=== PATIENT | male | born 1995 | race Caucasian/White ===

== ENCOUNTER 2016-11-11 20:20 | Emergency (ER) | payer OTHER ==
[2016-11-11 20:24] VITALS: BP 143/89
== END 2016-11-11 20:49 | disposition left against medical advice (07) ==
LOC: ED 20:20
DX: Z53.21 Procedure and treatment not carried out due to patient leaving prior to being seen by health care provider (principal)

== ENCOUNTER 2016-11-11 21:10 | Emergency (ER) | payer OTHER ==
[2016-11-11 22:10] VITALS: BP 143/89
== END 2016-11-11 22:10 | disposition home or self-care (01) ==
LOC: ED 21:10
DX: B34.9 Viral infection, unspecified (principal); R03.0 Elevated blood-pressure reading, without diagnosis of hypertension
CPT/HCPCS: Q0162

== ENCOUNTER 2016-11-12 15:36 | Inpatient (IN) | payer OTHER ==
[~2016-11-12] VITALS: Ht 172.7 cm; Wt 83.1 kg
[2016-11-12 18:42] LABS: ALKALINE PHOSPHATASE 99 U/L (46-116); ALT/SGPT 8 U/L (16-63); AST/SGOT 21 U/L (15-37); CALCIUM 8.7 mg/dL (8.5-10.1); CARBON DIOXIDE 32.2 mmol/L (21-32); CHLORIDE SERUM 98 mmol/L (98-107); CREATININE SERUM 0.9 mg/dL (0.7-1.3); GFR1 > 60 mL/min; GLUCOSE SERUM 96 mg/dL (74-106); POTASSIUM SERUM 4.1 mmol/L (3.5-5.1); TOTAL PROTEIN, SERUM 8.1 g/dL (6.4-8.2)
[2016-11-12 18:48] LABS: SODIUM SERUM 123 mmol/L (136-145)
[2016-11-12 20:59] LABS: AMPHETAMINE QUAL UR NONE DETECTED (NEG <=1000)
[2016-11-12 21:10] LABS: BASOPHIL % 0.5 % (0-2); PLATELET COUNT 131 x10^3mcL (130-400); RED CELL DISTRIBUTION WIDTH 12.9 % (11.5-14.5)
[2016-11-12 21:48] VITALS: BP 141/86
[2016-11-12 21:52] VITALS: Ht 172.7 cm; Wt 83.1 kg
[2016-11-13 05:23] VITALS: BP 128/68
[2016-11-13 05:36] LABS: BASOPHIL % 0.7 % (0-2)
[2016-11-13 05:45] LABS: CARBON DIOXIDE 26.4 mmol/L (21-32); CHLORIDE SERUM 105 mmol/L (98-107); CREATININE SERUM 0.8 mg/dL (0.7-1.3); GFR1 > 60 mL/min; GLUCOSE SERUM 95 mg/dL (74-106); POTASSIUM SERUM 3.6 mmol/L (3.5-5.1); SODIUM SERUM 139 mmol/L (136-145)
[2016-11-13 05:49] LABS: PLATELET COUNT 117 x10^3mcL (130-400)
[2016-11-13 08:40] VITALS: BP 131/78
[2016-11-13] MEDS ORDERED: PERCOCET1 TAB PO (13:58)
[2016-11-13] MEDS ORDERED: IMITREX50 MG PO (13:59)
[2016-11-13 16:00] VITALS: BP 131/78
== END 2016-11-13 16:45 | disposition home or self-care (01) | DRG 425 ==
LOC: ED 15:36 → MU 19:29
PROVIDERS: Emergency Medicine; ADMIT Internal Medicine Pulmonary Disease
DX: E87.1 Hypo-osmolality and hyponatremia (principal); G43.909 Migraine, unspecified, not intractable, without status migrainosus
CPT/HCPCS: 87804; J1885; J7030; Q0162

== ENCOUNTER 2016-11-14 23:45 | Emergency (ER) | payer OTHER ==
[~2016-11-14 23:45] MED LIST: IMITREX50 MG PO; PERCOCET1 TAB PO
[2016-11-15 02:39] VITALS: BP 124/74
== END 2016-11-15 02:30 | disposition home or self-care (01) ==
LOC: ED 23:45
DX: L27.0 Generalized skin eruption due to drugs and medicaments taken internally (principal)

== ENCOUNTER 2018-01-09 20:30 | Emergency (ER) | payer MEDICAID ==
[~2018-01-09] VITALS: Ht 175.3 cm; Wt 82.6 kg
[2018-01-09 22:15] VITALS: BP 126/75
== END 2018-01-09 22:15 | disposition home or self-care (01) ==
LOC: ED 20:30
DX: R11.2 Nausea with vomiting, unspecified (principal); M79.10 Myalgia, unspecified site; R19.7 Diarrhea, unspecified; R10.13 Epigastric pain
CPT/HCPCS: J1885; J7030; Q0162

== ENCOUNTER 2018-03-11 21:19 | Emergency (ER) | payer MEDICAID ==
[~2018-03-11] VITALS: Ht 175.3 cm; Wt 86.2 kg
[2018-03-11 21:44] VITALS: Ht 175.3 cm; Wt 86.2 kg
[2018-03-11 23:47] LABS: microscopic required? NO
[2018-03-11 23:55] LABS: urine erythrocyte NEGATIVE (NEGATIVE)
[2018-03-12 00:24] VITALS: BP 133/70
== END 2018-03-12 00:24 | disposition home or self-care (01) ==
LOC: ED 21:19
PROVIDERS: Emergency Medicine
DX: M54.5 Low back pain (principal)
CPT/HCPCS: J1885; Q0162

== ENCOUNTER 2018-06-22 10:25 | Emergency (ER) | payer MEDICAID ==
[~2018-06-22] VITALS: Ht 175.3 cm; Wt 88.0 kg
[2018-06-22 11:01] VITALS: Ht 175.3 cm; Wt 88.0 kg
[2018-06-22 12:47] LABS: CALCIUM 8.6 mg/dL (8.5-10.1); CARBON DIOXIDE 29.6 mmol/L (21-32); CHLORIDE SERUM 100 mmol/L (98-107); CREATININE SERUM 0.9 mg/dL (0.7-1.3); GFR1 > 60 mL/min; GLUCOSE SERUM 90 mg/dL (74-106); POTASSIUM SERUM 4.2 mmol/L (3.5-5.1); SODIUM SERUM 136 mmol/L (136-145)
[2018-06-22 14:55] VITALS: BP 122/62
== END 2018-06-22 14:55 | disposition home or self-care (01) ==
LOC: ED 10:25
PROVIDERS: Specialist
DX: M79.10 Myalgia, unspecified site (principal); R51 Headache
CPT/HCPCS: 87804; J7030